=== PATIENT | male | born 1985 | race Two or more races ===

== ENCOUNTER 2021-05-21 01:48 | Emergency (ER) | payer OTHER ==
[~2021-05-21] VITALS: Ht 180.3 cm; Wt 72.6 kg
[2021-05-21] MEDS ORDERED: KETO10TA2 PO (03:24)
[2021-05-21] MEDS ORDERED: MUPIROCIN22 GM TOP (03:24)
[2021-05-21] MEDS ORDERED: CEPHALEXIN500 MG PO (03:24)
== END 2021-05-21 03:38 ==
LOC: ER 01:48
DX: S20.219A Contusion of unspecified front wall of thorax, initial encounter (principal); S50.01XA Contusion of right elbow, initial encounter; S70.01XA Contusion of right hip, initial encounter; V29.88XA Motorcycle rider (driver) (passenger) injured in other specified transport accidents, initial encounter; Y93.89 Activity, other specified; Y92.89 Other specified places as the place of occurrence of the external cause; Y99.8 Other external cause status